=== PATIENT | male | born 1955 | race African-American/Black ===

== ENCOUNTER 2021-01-08 05:41 | Emergency (ER) | payer MEDICARE ==
[~2021-01-08] VITALS: Ht 175.3 cm; Wt 62.0 kg
[2021-01-08 05:49] VITALS: BP 189/92
[2021-01-08] MEDS ORDERED: SULF1TAB48 PO (06:52)
[2021-01-08] MEDS ORDERED: CEPH500T PO (06:52)
[2021-01-08] MEDS ORDERED: DIPH25CA83 PO (06:52)
== END 2021-01-08 07:14 | disposition home or self-care (01) ==
LOC: ER 05:41
DX: L03.90 Cellulitis, unspecified (principal); S80.869A Insect bite (nonvenomous), unspecified lower leg, initial encounter; I25.2 Old myocardial infarction; F17.200 Nicotine dependence, unspecified, uncomplicated; W57.XXXA Bitten or stung by nonvenomous insect and other nonvenomous arthropods, initial encounter; Y93.9 Activity, unspecified; Y92.9 Unspecified place or not applicable
CPT/HCPCS: 99281

== ENCOUNTER 2022-05-12 12:07 | Emergency (ER) | payer MEDICARE ==
[~2022-05-12] VITALS: Ht 180.3 cm; Wt 57.0 kg
[~2022-05-12 12:07] MED LIST: CEPH500T PO; DIPH25CA83 PO; SULF1TAB48 PO
[2022-05-12 14:33] LABS: BASOPHILS % 0.4 % (0.0-2.0); EOSINOPHILS % 4.5 % (0.0-5.0); HEMATOCRIT. 43.5 % (42.0-52.0); HEMOGLOBIN. 14.7 g/dL (14.0-18.0); LYMPHOCYTES % 22.3 % (20.0-50.0); MEAN CORPUSCULAR VOLUME 91.6 fL (80.0-94.0); MEAN PLATELET VOLUME 7.3 fl (7.4-10.4); MONOCYTES % 5.7 % (2.0-8.0); NEUTROPHILS % 67.1 % (40.0-76.0); PLATELET 263 x1000/uL (130-400); RED BLOOD CELL COUNT 4.75 mill/uL (4.7-6.1); RED CELL DISTRIBUTION WIDTH 14.3 % (11.6-14.6)
[2022-05-12 14:42] LABS: CHLORIDE 105 mEq/L (98-107)
[2022-05-12 15:01] LABS: ETHANOL BLOOD 334 mg/dL
[2022-05-12 15:05] LABS: *AMPHETAMINES SCREEN URINE NEGATIVE (NEGATIVE); *BARBITURATES SCREEN URINE NEGATIVE (NEGATIVE); *BENZODIAZEPINES SCREEN URINE NEGATIVE (NEGATIVE); *COCAINE SCREEN URINE NEGATIVE (NEGATIVE); CANNABINOID URINE SCREEN NEGATIVE (NEGATIVE); METHADONE URINE SCREEN NEGATIVE (NEGATIVE); OPIATES URINE SCREEN NEGATIVE (NEGATIVE); PHENCYCLIDINE URINE SCREEN NEGATIVE (NEGATIVE)
[2022-05-12] MEDS ORDERED: IBUP-2028 MT (17:08)
[2022-05-12 17:34] VITALS: BP 149/107
== END 2022-05-12 17:46 | disposition home or self-care (01) ==
LOC: ER 12:43
DX: F10.129 Alcohol abuse with intoxication, unspecified (principal); M25.552 Pain in left hip; F17.200 Nicotine dependence, unspecified, uncomplicated; F12.10 Cannabis abuse, uncomplicated; I25.2 Old myocardial infarction; R51.9 Headache, unspecified; I10 Essential (primary) hypertension; E11.9 Type 2 diabetes mellitus without complications; Y90.8 Blood alcohol level of 240 mg/100 ml or more
CPT/HCPCS: 36415; 71045; 72192; 73521; 73700; 80053; 80305; 80320; 85025; 93005; 99285; G0480

== ENCOUNTER 2024-12-15 00:31 | Emergency (ER) | payer MEDICARE ==
[~2024-12-15] VITALS: Ht 170.2 cm; Wt 59.0 kg
[~2024-12-15 00:31] MED LIST changes: +IBUP-2028 MT
[2024-12-15 01:18] VITALS: O2SAT 99
[2024-12-15] MEDS ORDERED: DOXY-461 MT (01:25)
[2024-12-15] MEDS: LIDOCAINE HCL/PF 1% 10 MG/ML 5ML VIAL INFIL ONE (01:30)
[2024-12-15] MEDS: CEFTRIAXONE SODIUM 500MG VIAL IM ONE (02:32)
[2024-12-15] MEDS: DOXYCYCLINE HYCLATE 100MG CAPSULE PO ONE (02:32)
[2024-12-15 02:37] VITALS: BP 152/89; PULSE 79; RESP 16; TEMP 36.8; O2SAT 99
== END 2024-12-15 02:40 | disposition home or self-care (01) ==
LOC: ER 00:31
DX: Z20.2 Contact with and (suspected) exposure to infections with a predominantly sexual mode of transmission (principal); F12.10 Cannabis abuse, uncomplicated; I25.2 Old myocardial infarction; I10 Essential (primary) hypertension; E11.9 Type 2 diabetes mellitus without complications; Z79.899 Other long term (current) drug therapy
CPT/HCPCS: 99283; 96372; J0696; J2003

== ENCOUNTER 2025-03-20 15:21 | Emergency (ER) | payer MEDICAID, MEDICARE ==
[~2025-03-20] VITALS: Ht 172.7 cm; Wt 68.0 kg
[~2025-03-20 15:21] MED LIST changes: +DOXY-461 MT
[2025-03-20 15:24] VITALS: O2SAT 98
[2025-03-20 17:18] VITALS: BP 140/72; PULSE 72; RESP 16; TEMP 36.5; O2SAT 98
== END 2025-03-20 17:36 | disposition home or self-care (01) ==
LOC: ER 15:21
DX: S00.03XA Contusion of scalp, initial encounter (principal); S00.81XA Abrasion of other part of head, initial encounter; F10.129 Alcohol abuse with intoxication, unspecified; I10 Essential (primary) hypertension; Z96.649 Presence of unspecified artificial hip joint; W18.39XA Other fall on same level, initial encounter; Y93.89 Activity, other specified; Y92.89 Other specified places as the place of occurrence of the external cause; Y99.8 Other external cause status; Y90.9 Presence of alcohol in blood, level not specified
CPT/HCPCS: 70486; 99284

== ENCOUNTER 2025-05-28 03:45 | Emergency (ER) | payer MEDICARE ==
[~2025-05-28] VITALS: Ht 175.3 cm; Wt 56.0 kg
[~2025-05-28 03:45] MED LIST changes: -CEPH500T PO; -DOXY-461 MT; -SULF1TAB48 PO
[2025-05-28 03:47] VITALS: O2SAT 100
[2025-05-28 04:09] VITALS: BP 121/66; PULSE 82; RESP 14; TEMP 36.9; O2SAT 100
[2025-05-28] MEDS: DIPHENHYDRAMINE 50MG/ML VIAL IM ONE (04:50)
[2025-05-28] MEDS ORDERED: CETI10CA2 MT (04:56)
== END 2025-05-28 05:01 | disposition home or self-care (01) ==
LOC: ER 03:45
DX: S20.469A Insect bite (nonvenomous) of unspecified back wall of thorax, initial encounter (principal); F10.20 Alcohol dependence, uncomplicated; W57.XXXA Bitten or stung by nonvenomous insect and other nonvenomous arthropods, initial encounter; Y93.89 Activity, other specified; Y92.89 Other specified places as the place of occurrence of the external cause; Y99.8 Other external cause status
CPT/HCPCS: 99283; 96372; J1200

== ENCOUNTER 2025-06-21 00:38 | Emergency (ER) | payer MEDICARE ==
[~2025-06-21] VITALS: Ht 175.3 cm; Wt 58.2 kg
[~2025-06-21 00:38] MED LIST changes: +CETI10CA2 MT
[2025-06-21 00:42] VITALS: O2SAT 100
[2025-06-21 00:49] VITALS: BP 139/90; PULSE 84; RESP 18; TEMP 36.8; O2SAT 99
[2025-06-21] MEDS: DIPHENHYDRAMINE 12.5MG/5ML UDC PO ONE (01:50)
[2025-06-21] MEDS ORDERED: DIPH28.33 TP (02:24)
== END 2025-06-21 02:42 | disposition home or self-care (01) ==
LOC: ER 00:38
DX: L29.9 Pruritus, unspecified (principal); W57.XXXA Bitten or stung by nonvenomous insect and other nonvenomous arthropods, initial encounter
CPT/HCPCS: 99282; Q0163

== ENCOUNTER 2025-07-20 00:40 | Emergency (ER) | payer MEDICARE ==
[~2025-07-20] VITALS: Ht 175.3 cm; Wt 55.0 kg
[~2025-07-20 00:40] MED LIST changes: +DIPH28.33 TP
[2025-07-20 00:46] VITALS: O2SAT 97
[2025-07-20 01:21] VITALS: BP 174/77; PULSE 86; RESP 16; TEMP 36.8; O2SAT 99
[2025-07-20 02:59] LABS: BASOPHILS % 0.5 % (0.0-2.0); EOSINOPHILS % 9.8 % (0.0-5.0); HEMATOCRIT. 38.8 % (42.0-52.0); HEMOGLOBIN. 13.0 g/dL (14.0-18.0); LYMPHOCYTES % 21.2 % (20.0-50.0); MEAN PLATELET VOLUME 7.3 fl (7.4-10.4); MONOCYTES % 10.9 % (2.0-8.0); NEUTROPHILS % 57.6 % (40.0-76.0); PLATELET 214 x1000/uL (130-400); RED BLOOD CELL COUNT 4.14 mill/uL (4.7-6.1); RED CELL DISTRIBUTION WIDTH 13.1 % (11.6-14.6)
[2025-07-20 03:39] LABS: CREATININE 0.8 mg/dL (0.6-1.3)
[2025-07-20 03:40] LABS: PROTEIN TOTAL 8.0 g/dL (6.0-8.3); UREA NITROGEN BLOOD < 5 mg/dL (9-23)
[2025-07-20 03:41] LABS: ASPARTATE AMINOTRANSFERASE 26 IU/L (<34)
[2025-07-20 03:42] LABS: BILIRUBIN TOTAL 0.3 mg/dL (0.1-1.0)
[2025-07-20] MEDS ORDERED: PERM60CR20 TP (03:53)
== END 2025-07-20 04:05 | disposition home or self-care (01) ==
LOC: ER 00:40
DX: L29.9 Pruritus, unspecified (principal); I10 Essential (primary) hypertension; I25.2 Old myocardial infarction; Z59.00 Homelessness unspecified
CPT/HCPCS: 36415; 80053; 85025; 99283